=== PATIENT | male | born 1985 | race Caucasian/White ===

== ENCOUNTER 2017-11-12 20:02 | Emergency (ER) | payer MEDICAID ==
[~2017-11-12] VITALS: Ht 188 cm; Wt 111.4 kg
[2017-11-12] MEDS ORDERED: ACET1TAB25 PO (21:17)
[2017-11-12] MEDS ORDERED: AMOX-441 PO (21:17)
[2017-11-12] MEDS ORDERED: IBUP-1984 PO (21:17)
[2017-11-12 21:27] VITALS: BP 133/72
== END 2017-11-12 21:28 | disposition home or self-care (01) ==
LOC: ER 20:03
DX: K08.89 Other specified disorders of teeth and supporting structures (principal)
CPT/HCPCS: 99283